=== PATIENT | female | born 1995 | race Caucasian/White ===

== ENCOUNTER 2023-04-15 22:19 | Outpatient (REF) | payer OTHER, MEDICAID, SELFPAY ==
[2023-04-19 11:09] LABS: Age Gdln ACOG Testing Note (.); IGP, rfx Aptima HPV ASCU Note (.)
== END 2023-04-15 22:20 | disposition home or self-care (01) ==
LOC: LAB 22:19
PROVIDERS: PCP Obstetrics & Gynecology; Visit Provider Obstetrics & Gynecology
DX: Z01.419 Encounter for gynecological examination (general) (routine) without abnormal findings (principal)
CPT/HCPCS: G0145

== ENCOUNTER 2024-11-10 21:22 | Outpatient (REF) | payer OTHER, MEDICAID, SELFPAY ==
[2024-11-13 21:08] LABS: Age Gdln ACOG Testing Note (.); IGP, rfx Aptima HPV ASCU Note (.)
== END 2024-11-10 21:23 | disposition home or self-care (01) ==
LOC: LAB 21:22
PROVIDERS: PCP Obstetrics & Gynecology; Visit Provider Obstetrics & Gynecology
DX: Z01.419 Encounter for gynecological examination (general) (routine) without abnormal findings (principal)
CPT/HCPCS: 88175

== ENCOUNTER 2025-03-19 07:17 | Outpatient (RCR) | payer OTHER, MEDICAID, SELFPAY ==
[2025-03-02 14:22] LABS: Hematocrit 40.5 % (36.0-48.0); Hemoglobin 13.0 g/dL (12.0-16.0); Immature Granulocytes Abs Auto 0.05 10^3/uL (0.00-0.03); Immature Granulocytes Pct Auto 0.5 % (0.0-0.5); Lymphocytes Absolute Auto 2.5 10^3/uL (1.2-3.8); Mean Corpuscular HGB Conc 32.1 g/dL (29.9-35.2); Mean Corpuscular Hemoglobin 26.4 pg (26.7-34.0); Mean Corpuscular Volume 82.2 fL (81.0-99.0); Platelet Count 330 10^3/uL (150-450); Red Blood Count 4.93 10^6/uL (4.20-5.40); White Blood Count 9.7 10^3/uL (4.0-11.0)
[2025-03-02 15:47] LABS: Iron 56.0 ug/dL (50.0-170.0); Percent Iron Saturation 18.0 %; Total Iron Binding Capacity 311.0 ug/dL (250.0-450.0)
[2025-03-02 16:13] LABS: Ferritin 47.0 ng/mL (8.0-252.0)
[2025-03-19 10:00] VITALS: BP 117/83; PULSE 93; TEMP 36.2; O2SAT 97
[2025-03-19] MEDS: DIPHENHYDRAMINE HCL 50 MG/ML VIAL 25 MG IV (10:43)
[2025-03-19] MEDS: FERRIC CARBOXYMALTOSE 750 MG in 0.9 % SODIUM CHLORIDE 250 ML 795 MG IV (10:44)
== END 2025-03-25 23:59 | disposition home or self-care (01) ==
LOC: HEMC 07:17
PROVIDERS: PCP Obstetrics & Gynecology; Visit Provider Internal Medicine Hematology & Oncology
DX: E61.1 Iron deficiency (principal); K90.9 Intestinal malabsorption, unspecified
CPT/HCPCS: 36415; 82728; 83540; 83550; 85025; 96365; 96375; G0463; J1200; J1439

== ENCOUNTER 2025-04-20 11:34 | Outpatient (RCR) | payer OTHER, MEDICAID, SELFPAY ==
[2025-03-26 10:00] VITALS: BP 132/86; PULSE 86; TEMP 37.3; O2SAT 97
[2025-03-26] MEDS: DIPHENHYDRAMINE HCL 50 MG/ML VIAL 25 MG IV (10:52)
[2025-03-26] MEDS: FERRIC CARBOXYMALTOSE 750 MG in 0.9 % SODIUM CHLORIDE 250 ML 795 MG IV (10:59)
== END 2025-04-25 23:59 | disposition home or self-care (01) ==
LOC: HEMC 11:34
PROVIDERS: PCP Obstetrics & Gynecology; Visit Provider Internal Medicine Hematology & Oncology
DX: E61.1 Iron deficiency (principal); D50.9 Iron deficiency anemia, unspecified; K90.9 Intestinal malabsorption, unspecified
CPT/HCPCS: 96365; 96375; J1200; J1439